=== PATIENT | male | born 1950 | race American Indian/Alaskan Native ===

== ENCOUNTER 2017-05-05 22:37 | Emergency (ER) | payer MEDICARE ==
--- NOTE | 2017-05-05 22:55 | Emergency Department Report ---
ED Neuro Deficit HPI - General Stated Complaint: CODE STROKE Time Seen by Provider: 05/05/17 22:50 Source: patient, EMS - History of Present Illness Initial Comments: Patient is a 66 years old male recently admitted to [facility] in rehabilitation after he sustained stroke with left upper and lower extremity weakness. long-term reported that around 1 hour ago he started having left facial twitching and jerking movement on the left upper extremity. Per custodial report, this is similar to what he had last time when he had his stroke. -: Sudden Location: speech, left face, left arm History of same: Yes Severity: moderate - Related Data Allergies/Adverse Reactions: Allergies Allergy/AdvReac Type Severity Reaction Status Date / Time aspirin Allergy Unknown Verified 05/05/17 22:41 ED Review of Systems ROS: Stated complaint: CODE STROKE Other details as noted in HPI Comment: All other systems reviewed and negative Constitutional: denies: chills, fever Respiratory: denies: cough, orthopnea, shortness of breath, SOB with exertion, wheezing Cardiovascular: denies: chest pain, palpitations, dyspnea on exertion Gastrointestinal: denies: abdominal pain, nausea, vomiting, diarrhea, constipation, hematemesis, hematochezia Genitourinary: denies: urgency, dysuria, frequency Neurological: denies: headache, weakness, numbness, paresthesias, confusion, abnormal gait ED Past Medical Hx - Past Medical History Hx CVA: Yes ED Neuro Physical Exam - General Limitations: Physical Limitation General appearance: alert, in no apparent distress Suspected Stroke: Yes - Head Head exam: Present: atraumatic, normocephalic - Eye Eye exam: Present: normal appearance, PERRL - ENT ENT exam: Present: normal exam, normal orophraynx, mucous membranes moist - Neck Neck exam: Present: normal inspection, full ROM. Absent: tenderness, meningismus - Respiratory Respiratory exam: Present: normal lung sounds bilaterally. Absent: respiratory distress, wheezes, rales, rhonchi, stridor, accessory muscle use, decreased breath sounds, prolonged expiratory - Cardiovascular Cardiovascular Exam: Present: regular rate, normal rhythm, normal heart sounds - GI/Abdominal GI/Abdominal exam: Present: soft, normal bowel sounds. Absent: distended, tenderness, guarding, rebound, rigid - Extremities Exam Extremities exam: Present: normal inspection, full ROM - Back Exam Back exam: Present: normal inspection, full ROM. Absent: tenderness, CVA tenderness (R), CVA tenderness (L), muscle spasm, paraspinal tenderness - Neurological Exam Neurological exam: Present: alert, altered - NIHSS Assessment Interval: Baseline 1a. Level of Consciousness: alert 1b. LOC Questions: answers correctly 1c. LOC Commands: performs tasks correctly 2. Best Gaze: normal 3. Visual: no visual loss 4. Facial Palsy: partial paralysis 5b. Motor Arm Right: no drift 5a. Motor Arm Left: no drift 6a. Motor Leg Left: no drift 6b. Motor Leg Right: no drift 7. Limb Ataxia: absent 8. Sensory: normal 9. Best Language: no aphasia 10. Dysarthria: mild/moderate dysarthria 11. Extinction/Inattention: no abnormality Total Score: 3 Stroke Severity: Minor Stroke - Psychiatric Psychiatric exam: Present: normal affect, normal mood - Skin Skin exam: Present: warm, intact, normal color ED Course Vital Signs 05/05/17 05/05/17 05/05/17 22:49 22:58 23:00 Temperature 98.3 F 98 F Pulse Rate 76 Respiratory 15 14 Rate Blood Pressure 140/63 O2 Sat by Pulse Oximetry 05/05/17 05/05/17 23:15 23:30 Temperature Pulse Rate 70 67 Respiratory 16 14 Rate Blood Pressure 148/84 140/92 O2 Sat by Pulse 98 97 Oximetry - Reevaluation(s) Reevaluation #1: 05/06/17 01:10 No more seizure activity was observed in the ER. Patient is alert and oriented in no acute distress. Reevaluation #2: 05/06/17 01:49 Patient is moving comfortably, easily arousable, patient denied any symptoms. No seizure activity noticed. I will discharge patient back to the custodial with Keppra 500 mg twice a day and referral to follow-up as a neurologist. - Lab Data Result diagrams: 05/05/17 22:53 05/05/17 22:53 Lab Results 05/05/17 05/05/17 05/05/17 Range/Units 22:53 22:53 22:53 WBC 6.5 (4.5-11.0) K/mm3 RBC 3.56 L (3.65-5.03) M/mm3 Hgb 10.9 L (11.8-15.2) gm/dl Hct 32.7 L (35.5-45.6) % MCV 92 (84-94) fl MCH 31 (28-32) pg MCHC 33 (32-34) % RDW 17.8 H (13.2-15.2) % Plt Count 310 (140-440) K/mm3 Lymph % (Auto) 28.6 (13.4-35.0) % Carlisle % (Auto) 8.6 H (0.0-7.3) % Eos % (Auto) 2.7 (0.0-4.3) % Baso % (Auto) 0.9 (0.0-1.8) % Lymph # 1.8 (1.2-5.4) K/mm3 Carlisle # 0.6 (0.0-0.8) K/mm3 Eos # 0.2 (0.0-0.4) K/mm3 Baso # 0.1 (0.0-0.1) K/mm3 Seg Neutrophils % 59.2 (40.0-70.0) % Seg Neutrophils # 3.8 (1.8-7.7) K/mm3 PT 13.4 (12.2-14.9) Sec. INR 0.97 (0.87-1.13) APTT 35.3 (24.2-36.6) Sec. Thrombin Time 54.2 H (15.1-19.6) Sec. Sodium 139 (137-145) mmol/L Potassium 4.4 (3.6-5.0) mmol/L Chloride 100.7 (98-107) mmol/L Carbon Dioxide 29 (22-30) mmol/L Anion Gap 14 mmol/L BUN 16 (9-20) mg/dL Creatinine 0.8 (0.8-1.5) mg/dL Estimated GFR > 60 ml/min BUN/Creatinine Ratio 20 % Glucose 102 H (75-100) mg/dL POC Glucose (70-105) Calcium 9.4 (8.4-10.2) mg/dL Troponin T < 0.010 (0.00-0.029) ng/mL 05/05/17 Range/Units 23:00 WBC (4.5-11.0) K/mm3 RBC (3.65-5.03) M/mm3 Hgb (11.8-15.2) gm/dl Hct (35.5-45.6) % MCV (84-94) fl MCH (28-32) pg MCHC (32-34) % RDW (13.2-15.2) % Plt Count (140-440) K/mm3 Lymph % (Auto) (13.4-35.0) % Carlisle % (Auto) (0.0-7.3) % Eos % (Auto) (0.0-4.3) % Baso % (Auto) (0.0-1.8) % Lymph # (1.2-5.4) K/mm3 [place] # (0.0-0.8) K/mm3 Eos # (0.0-0.4) K/mm3 Baso # (0.0-0.1) K/mm3 Seg Neutrophils % (40.0-70.0) % Seg Neutrophils # (1.8-7.7) K/mm3 PT (12.2-14.9) Sec. INR (0.87-1.13) APTT (24.2-36.6) Sec. Thrombin Time (15.1-19.6) Sec. Sodium (137-145) mmol/L Potassium (3.6-5.0) mmol/L Chloride (98-107) mmol/L Carbon Dioxide (22-30) mmol/L Anion Gap mmol/L BUN (9-20) mg/dL Creatinine (0.8-1.5) mg/dL Estimated GFR ml/min BUN/Creatinine Ratio % Glucose (75-100) mg/dL POC Glucose 96 (70-105) Calcium (8.4-10.2) mg/dL Troponin T (0.00-0.029) ng/mL - Radiology Data Radiology results: report reviewed Referring Physician: REGI MILLS Patient Name: PAIGE SAWYER Date of : 1950 Sex: Male Report Date: 2017-05-05 Report Status: Finalized Findings [facility] [address] [place] [address] Cat Scan Report Signed Patient: PAIGE SAWYER MR#: [id number] : 1950 Acct:[id number] Age/Sex: 66 / M ADM Date: 05/05/17 Loc: ED Attending Dr: Ordering Physician: REGI MILLS Date of Service: 05/05/17 Procedure(s): CT head/brain wo con Accession Number(s): [id number] cc: REGI MILLS FINAL REPORT EXAM: CT HEAD/BRAIN WO CON HISTORY: neuro deficits lt; 6hrs or sx present upon awakening TECHNIQUE: Standard unenhanced CT of the head at 5.0 millimeter axial increments PRIORS: None. FINDINGS: The ventricular system is normal in size and configuration. There is mild cerebral atrophy. Several remote lacunar infarcts in the basal ganglia bilaterally and right caudate nucleus are noted. There is a remote small area of infarct in the right occipital region posteriorly. Small low-density areas in the periventricular white matter likely due to small vessel ischemic changes. There is no evidence for mass lesion, mass effect, midline shift, acute intracranial hemorrhage, or acute ischemia/ infarction. Visualized paranasal sinuses are clear. IMPRESSION: 1. no acute intracranial process noted. 2. Small vessel ischemic changes with evidence for remote lacunar infarcts. There is a small remote infarct in the right occipital region. 3. Atrophy Transcribed By: [facility] Dictated By: TRACI UP MD Electronically Authenticated By: TRACI UP MD Signed Date/Time: 05/05/171851 DD/ 51 TD/TT: 05/05/171851 - Medical Decision Making Discussed with Dr. Parrish, from telemetry neurology, informed about the patient. Dr. Guajardo think this is most likely seizure, he advised to load patient weighs 1 g of Keppra and patient can be return to the custodial. Critical Care Time: Yes Critical care time in (mins) excluding proc time.: 20 Critical care attestation.: If time is entered above; I have spent that time in minutes in the direct care of this critically ill patient, excluding procedure time. ED Disposition Clinical Impression: Stroke-like symptoms, Seizure Disposition: DC/TX-70 ANOTHER TYPE HLTHCARE Is pt being admited?: No Condition: Stable Instructions: New-Onset Seizure in Adults (ED) Referrals: AASHISH SMITH DO [Primary Care Provider] - 3-5 Days
[2017-05-05 23:00] LABS: Basophils # (Auto) 0.1 K/mm3 (0.0-0.1); Basophils % (Auto) 0.9 % (0.0-1.8); Eosinophils # (Auto) 0.2 K/mm3 (0.0-0.4); Eosinophils % (Auto) 2.7 % (0.0-4.3); Hematocrit 32.7 % (35.5-45.6); Hemoglobin 10.9 gm/dl (11.8-15.2); Lymphocytes # (Auto) 1.8 K/mm3 (1.2-5.4); Lymphocytes % (Auto) 28.6 % (13.4-35.0); Mean Corpuscular HGB Conc 33 % (32-34); Mean Corpuscular Hemoglobin 31 pg (28-32); Mean Corpuscular Volume 92 fl (84-94); Monocytes # (Auto) 0.6 K/mm3 (0.0-0.8); Monocytes % (Auto) 8.6 % (0.0-7.3); Platelet Count 310 K/mm3 (140-440); Red Blood Count 3.56 M/mm3 (3.65-5.03); Red Cell Distribution Width 17.8 % (13.2-15.2)
[2017-05-05 23:13] LABS: INR 0.97 (0.87-1.13)
[2017-05-05 23:14] LABS: BUN/Creatinine Ratio 20; Blood Urea Nitrogen 16 mg/dL (9-20); Calcium 9.4 mg/dL (8.4-10.2); Hemolysis Index 1; Partial Thromboplastin Time 35.3 Sec. (24.2-36.6); Thrombin Time 54.2 Sec. (15.1-19.6)
[2017-05-05] MEDS ORDERED: KEPPRA 1,000 MG/NS 0.75% 100ML 1,000 MG/100 ML BAG IV ONE (23:42)
[2017-05-06] MEDS ORDERED: ATIVAN IV ONE (02:39)
[2017-05-06 06:24] VITALS: BP 135/77
== END 2017-05-06 06:39 | disposition other institution (70) ==
LOC: ED 22:37
DX: R56.9 Unspecified convulsions (principal); Z86.73 Personal history of transient ischemic attack (TIA), and cerebral infarction without residual deficits; Z88.6 Allergy status to analgesic agent
CPT/HCPCS: 36415; 70450; 80048; 82962; 84484; 85025; 85610; 85670; 85730; 93005; 93010; 96365; 96366; 96375; 99285; J1953; J2060